=== PATIENT | female | born 1955 | race Caucasian/White ===

== ENCOUNTER 2017-04-12 15:48 | Emergency (ER) | payer OTHER ==
[~2017-04-12] VITALS: Ht 157.4 cm; Wt 73.5 kg
[2017-04-12 16:35] LABS: BASO % 0.1 % (0.0-1.0); EOS # 0.2 10*3/uL (0.0-0.4); HEMATOCRIT 36.4 % (37.0-47.0); HEMOGLOBIN 11.5 g/dl (12.0-16.0); LYMPH # 4.6 10*3/uL (1.3-4.4); LYMPH % 28.2 % (27.0-41.0); MEAN CELL VOLUME 91.9 fl (81.0-99.0); MEAN CORPUSCULAR HGB CONC 31.6 g/dl (33.0-37.0); MEAN PLATELET VOLUME 9.3 fl (9.6-12.3); MONO # 1.1 10*3/uL (0.1-1.0); MONO % 6.8 % (3.0-9.0); NEUT # 10.1 10*3/uL (2.3-7.9); NEUT % 62.9 % (47.0-73.0); PLATELET COUNT AUTOMATED 246 10*3/uL (130-400); RED BLOOD COUNT 3.96 10*6/uL (4.10-5.10); RED CELL DISTRI WIDTH 13.3 % (0-14.5); WHITE BLOOD COUNT 16.1 10*3/uL (4.8-10.8)
[2017-04-12 16:49] LABS: ALBUMIN 2.5 gm/dl (3.1-4.5); ALKALINE PHOSPHATASE 71 U/L (45-117); BUN 17 mg/dl (7-24); CHLORIDE 105 mmol/L (98-107); CREATININE 0.72 mg/dL (0.55-1.02); POTASSIUM 3.7 mmol/L (3.5-5.1); SGOT/AST 9 IU/L (3-35); SGPT/ALT 18 U/L (12-78); SODIUM 143 mmol/L (136-145); TOTAL PROTEIN 6.1 gm/dL (6.4-8.2)
[2017-04-12] MEDS ORDERED: ZOFRAN ODT4 MG SL (17:32)
== END 2017-04-12 22:19 | disposition home or self-care (01) ==
LOC: ED 15:48 → EDBD 15:50 → ED 22:19
PROVIDERS: Physician Assistant
DX: A08.4 Viral intestinal infection, unspecified (principal); R05 Cough; F17.210 Nicotine dependence, cigarettes, uncomplicated; Z88.6 Allergy status to analgesic agent; Z91.030 Bee allergy status; Z88.5 Allergy status to narcotic agent; Z88.8 Allergy status to other drugs, medicaments and biological substances; Z91.040 Latex allergy status

== ENCOUNTER 2017-04-17 13:34 | Emergency (ER) | payer OTHER ==
[~2017-04-17] VITALS: Ht 157.4 cm; Wt 73.5 kg
[~2017-04-17 13:34] MED LIST: ZOFRAN ODT4 MG SL
[2017-04-17 14:27] LABS: BASO % 0.4 % (0.0-1.0); EOS # 0.2 10*3/uL (0.0-0.4); EOS % 1.9 % (1.0-4.0); HEMATOCRIT 37.5 % (37.0-47.0); HEMOGLOBIN 11.5 g/dl (12.0-16.0); LYMPH # 3.3 10*3/uL (1.3-4.4); LYMPH % 31.4 % (27.0-41.0); MEAN CELL VOLUME 93.8 fl (81.0-99.0); MEAN CORPUSCULAR HGB 28.8 pg (27.0-31.0); MEAN CORPUSCULAR HGB CONC 30.7 g/dl (33.0-37.0); MEAN PLATELET VOLUME 9.4 fl (9.6-12.3); MONO % 9.3 % (3.0-9.0); NEUT % 56.6 % (47.0-73.0); PLATELET COUNT AUTOMATED 226 10*3/uL (130-400); RED CELL DISTRI WIDTH 13.2 % (0-14.5); WHITE BLOOD COUNT 10.5 10*3/uL (4.8-10.8)
[2017-04-17 14:39] LABS: ALBUMIN 2.7 gm/dl (3.1-4.5); ALKALINE PHOSPHATASE 60 U/L (45-117); BUN 20 mg/dl (7-24); CHLORIDE 101 mmol/L (98-107); CREATININE 0.79 mg/dL (0.55-1.02); LIPASE 183 U/L (73-393); POTASSIUM 3.8 mmol/L (3.5-5.1); SGOT/AST 7 IU/L (3-35); SGPT/ALT 14 U/L (12-78); SODIUM 138 mmol/L (136-145)
[2017-04-17 15:19] LABS: BILIRUBIN NEGATIVE (NEGATIVE); BLOOD NEGATIVE (NEGATIVE); CLARITY CLEAR (CLEAR); COLOR YELLOW (YELLOW); GLUCOSE 3+ (NEGATIVE); KETONE TRACE (NEGATIVE); LEUKO ESTERASE NEGATIVE (NEGATIVE); NITRITE NEGATIVE (NEGATIVE); PH 6.5 (5.0-9.0)
[2017-04-17 15:27] LABS: URINE AMPHETAMINES < 1000 (1000ng/ml); URINE BARBITURATES < 200 (200ng/ml); URINE BENZODIAZEPINES < 200 (200ng/ml); URINE CANNABINOIDS (THC) > 50 (50ng/ml); URINE COCAINE < 300 (300ng/ml); URINE METHADONE < 300 (300ng/ml); URINE OPIATES < 300 (300ng/ml)
[2017-04-17 15:34] LABS: URINE PHENCYCLIDINE < 25 (25ng/ml)
[2017-04-17 15:36] LABS: BACTERIA 2+; RBC 0-2 rbc/hpf (0-2)
== END 2017-04-17 17:45 | disposition short-term general hospital (02) ==
LOC: ED 13:34
PROVIDERS: Student in an Organized Health Care Education/Training Program
DX: G93.41 Metabolic encephalopathy (principal); J96.90 Respiratory failure, unspecified, unspecified whether with hypoxia or hypercapnia; F17.200 Nicotine dependence, unspecified, uncomplicated; Z90.49 Acquired absence of other specified parts of digestive tract; Z98.890 Other specified postprocedural states; Z88.6 Allergy status to analgesic agent; Z88.5 Allergy status to narcotic agent; Z91.040 Latex allergy status; Z88.8 Allergy status to other drugs, medicaments and biological substances

== ENCOUNTER 2017-04-26 01:41 | Inpatient (IN) | payer OTHER ==
[~2017-04-26] VITALS: Ht 157.4 cm; Wt 75.0 kg
[2017-04-26] VITALS (7 sets, daily range): BP systolic 113–180; BP diastolic 71–104
--- NOTE | ~2017-04-26 | PR ---
[place], [place] PROGRESS NOTE NAME: [facility]WS [facility] [id number] UNIT #: [id number] ROOM: 402 DOCTOR: LEONA POLANCO MD,ERNESTO BIRTHDATE: [birth year] DOS: 04/27/2017 SUBJECTIVE: She has been noted with reduction in symptoms of shortness of breath, coughing. There were no symptoms of chest pain. The wheezing has been decreased significantly. The patient was wishing for home discharge today. OBJECTIVE: VITAL SIGNS: Normal temperature, respiratory rate 18, heart rate 78, blood pressure 131/68. Her pulse oxygen saturation recorded on 3 liters oxygen at 98% saturation. HEENT: No new change. NECK: Supple. CARDIOVASCULAR: S1, S2 audible. LUNGS: The patient was noted with scattered expiratory wheezing, no crackles. ABDOMEN: Soft, nontender. LABORATORY DATA: BMP for this patient, normal BUN and creatinine. Glucose 194, mildly elevated. PT, PTT was normal. Culture of the sputum preliminary showing normal gissell. Gram stain was pending. IMPRESSION: 1. The patient with resolving acute exacerbation of chronic obstructive pulmonary disease, acute tracheobronchitis, questionable pneumonia for this patient in the right upper lung was noted small at this time. 2. History of chronic nicotine dependence as well. 3. Chronic hypoxic respiratory failure. PLAN OF TREATMENT: From the pulmonary standpoint, the patient could be discharged home on oral antibiotics, bronchodilators, and to resume her home medications as ordered. Other supportive therapy, plan and management and usual care. Supportive therapies, treatment plan and management. ERNESTO DELGADILLO MD CM:PNTRANS [id number] ERNESTO POLANCO MD 04/27/17 1341 interface
--- NOTE | ~2017-04-26 | EKG ---
[place], [place] ELECTROCARDIOGRAM REPORT NAME: WING MATTHEWS UNIT #: [id number] ROOM: 402 DOCTOR: LEONA POLANCO MD,ERNESTO BIRTHDATE: [birth year] DOS: 04/26/2017 TIME OF EK:05 a.m. The electrocardiogram showed evidence of sinus tachycardia with heart rate of 119 beats per minute with PVCs. Otherwise, no changes for this patient was noted such as cardiac arrhythmias or ischemia. ERNESTO DELGADILLO MD CM:EKGRPT:ELECTROCARDIOGRAM REPORT [id number] ERNESTO POLANCO MD
--- NOTE | ~2017-04-26 | CON ---
[place], [place] REPORT OF CONSULTATION NAME: WING MATTHEWS [facility] #: [id number] UNIT #: [id number] ROOM: 402 DOCTOR: ERNESTO RUSSELL MD BIRTHDATE: [birth year] DOS: 04/26/2017 CONSULTATION REQUESTED BY: Hospitalist service. REASON FOR CONSULTATION: For assessment of recurrent possible pneumonia and respiratory problem. HISTORY OF PRESENT ILLNESS: A 61-year-old somewhat poor historian has been admitted to the hospital under care of the hospitalist services this morning. The patient came into the Emergency Room as she had taken inadvertently the insulin belonging to her son because her sugar was elevated. The patient came into the Emergency Room for further problems. She does have a cough, which is noted mild to moderate without any sputum expectoration, dyspnea occurring with exertion and wheezing. She stated she has been noted wheezing for a long period of time. Denies symptoms of chest pain. Denies any symptoms of hemoptysis. She has been admitted at [facility] couple of weeks ago where she was intubated and then liberated from mechanical ventilator and currently staying at home. Further details were not known by the patient. REVIEW OF SYSTEMS: CONSTITUTIONAL: She has been noted mild fatigue. Denies symptoms of fever or chills. EYES: Denies any burning, redness, or tenderness. EARS, NOSE, THROAT: No sore throat, hoarseness, otalgia, postnasal drainage or epistaxis. CARDIOVASCULAR: Denies anginal pain, edema or pain of the lower extremities. GASTROINTESTINAL: Dysphagia, nausea, vomiting, diarrhea, abdominal pain, hematemesis, melena or hematochezia. SKIN: Denies lesions or rashes. MUSCULOSKELETAL: No acute joint pain. SKIN: No lesions, rashes or ulcers. CENTRAL NERVOUS SYSTEM: No dizziness, headache, diplopia, syncopal episodes or seizures. Remaining systems were reviewed with the patient, they were noted all negative. PAST MEDICAL HISTORY: 1. COPD/centrilobular emphysema. 2. Type 2 diabetes mellitus. 3. Fibromyalgia. 4. History of rheumatoid arthritis. PAST SURGICAL HISTORY: 1. Reported as several surgeries that include appendectomy. 2. Resection of the bowel, details again were unknown. 3. History of hernia repair. 4. Multiple other surgeries, not described by the patient fully. SOCIAL HISTORY: The patient is , has 2 children. She has been noted history of tobacco use, started at age of [age] years old, smoked maximum of 3 [place], [place] REPORT OF CONSULTATION NAME: WING MATTHEWS UNIT #: [id number] ROOM: 402 DOCTOR: LEONA POLANCO MD,ERNESTO BIRTHDATE: [birth year] packs of cigarettes per day. Currently smokes 1 pack of cigarettes per day actively until the hospitalization. Denies any history of alcohol use, illicit drug use or occupation related pulmonary exposure. FAMILY HISTORY: Note with history of lung cancer in the mother, history about the dad were described as hypertension. MEDICATIONS: From home were listed as only Zofran. DRUG ALLERGIES: Noted for many allergies that include PERCOCET, INVOKANA, CODEINE PHOSPHATE, ERYTHROMYCIN, FLURBIPROFEN, MUCINEX, DILAUDID, LAMICTAL, MEPERIDINE, METFORMIN, MORPHINE, NORFLEX, LYRICA and ZOLOFT. PHYSICAL EXAMINATION: GENERAL: A 61-year-old female who has been sitting on the bed stating that she would like to be discharged home to celebrate her birthday tomorrow. She does not have signs of acute respiratory distress. Height of 5 feet 2 inches, weight 165 pounds, BMI 30.2. VITAL SIGNS: The patient shows a temperature of 100.3 degrees Fahrenheit, normal temperature; respiratory rate 12-24; heart rate 134-88; blood pressure 142/76-144/104. The pulse oxygen saturation on 2 liters nasal cannula 98% saturation and room air was 98% saturation. HEENT: Head was atraumatic. Eyes nonicterus. Oral mucosa moist. NECK: Supple. CARDIOVASCULAR: S1, S2 audible. LUNGS: Noted without any crackles. Moderate decreased breath sounds with [id number] expiratory wheezing noted in the lungs bilaterally. ABDOMEN: Soft, nontender, bowel sounds present. CENTRAL NERVOUS SYSTEM: Cranial nerves 2-12 intact. No focal deficit. MUSCULOSKELETAL: The patient does not show any deformities. SKIN: No lesions or rashes. LABORATORY DATA: Lactic acid this morning was 1.2 that was normal. CBC this morning, normal WBC count and platelet count, hemoglobin mildly decreased at 11.1, hematocrit 36.3. The PT and PTT were noted as normal this morning. CMP this morning, glucose 29, BUN and creatinine were normal. CO2 of 35. Total protein 5.9, albumin 2.5. ProBNP minimally elevated 266 with normal troponin this morning. The troponin follow for this patient three additional tests were noted as normal this morning. The radiology data was personally reviewed. The chest x-ray, which was done 2-view this morning at 7:00 a.m. shows small area of basilar atelectasis. CT of the chest, the patient was also ordered and done in the Emergency Room. There was no evidence of pulmonary embolism. The CT scan of the chest was personally reviewed, shows small area of scarring noted in the right apex with changes of mild centrilobular emphysema. A granuloma was noted in the left upper lobe. Calcification of the mediastinal lymph node and hilar lymph noted bilaterally. Another linear scarring was noted in the right middle lobe for this patient with a small patchy infiltration was suspected in the right lower lobe. Small scarring was noted in the left lingula as well. IMPRESSION: [place], [place] REPORT OF CONSULTATION NAME: WING MATTHEWS UNIT #: [id number] ROOM: [facility] DO[facility] B[facility] [birth year] 1. The patient will be currently admitted, this patient's etiology was unclear, but appears to have exacerbation of chronic obstructive pulmonary disease. Current finding, the patient does not represent for the patient any gross major pneumonia for this patient with current assessment, low-grade fever may be related to the viral infection etiology. 2. Chronic granulomatous lung disease was also noted with calcification of the lymph node. Granuloma of the left upper lobe is a benign finding. 3. Chronic nicotine dependence as well. 4. Past respiratory failure requiring intubation and mechanical ventilation recently as well. PLAN OF TREATMENT: Tobacco cessation was addressed with the patient. She has been currently getting broad spectrum intravenous antibiotics, they may not be needed to be used. Continuation of the bronchodilators. She was started on Dulera. Nicotine replacement patch will be ordered. The patient was to use that to overcome nicotine withdrawal. The patient would be ordered Solu-Medrol for this patient to manage the current COPD. Other supportive therapy, plan of management. Usual care, all other treatment plan and management to be done for the patient based on progression of the illness. Thanks for allowing me to participate in the care of this patient. ERNESTO DELGADILLO MD CM:CONSTR:REPORT OF CONSULTATION 1313 04/27/17 0537 interface
[2017-04-26 02:18] LABS: BASO % 0.2 % (0.0-1.0); EOS # 0.5 10*3/uL (0.0-0.4); EOS % 4.9 % (1.0-4.0); HEMATOCRIT 36.3 % (37.0-47.0); HEMOGLOBIN 11.1 g/dl (12.0-16.0); LYMPH # 2.8 10*3/uL (1.3-4.4); LYMPH % 30.2 % (27.0-41.0); MEAN CELL VOLUME 93.6 fl (81.0-99.0); MEAN CORPUSCULAR HGB 28.6 pg (27.0-31.0); MEAN CORPUSCULAR HGB CONC 30.6 g/dl (33.0-37.0); MEAN PLATELET VOLUME 9.7 fl (9.6-12.3); MONO % 10.6 % (3.0-9.0); NEUT % 53.8 % (47.0-73.0); PLATELET COUNT AUTOMATED 157 10*3/uL (130-400); RED BLOOD COUNT 3.88 10*6/uL (4.10-5.10); RED CELL DISTRI WIDTH 13.5 % (0-14.5); WHITE BLOOD COUNT 9.3 10*3/uL (4.8-10.8)
[2017-04-26 02:29] LABS: ACT PARTIAL THROMBO TIME 24.1 SECONDS (20.8-31.5)
[2017-04-26 02:34] LABS: ALBUMIN 2.5 gm/dl (3.1-4.5); ALKALINE PHOSPHATASE 65 U/L (45-117); BUN 14 mg/dl (7-24); CHLORIDE 102 mmol/L (98-107); CREATININE 0.81 mg/dL (0.55-1.02); MAGNESIUM 1.5 mg/dL (1.5-2.1); POTASSIUM 3.8 mmol/L (3.5-5.1); SGOT/AST 6 IU/L (3-35); SGPT/ALT 16 U/L (12-78); SODIUM 142 mmol/L (136-145); TOTAL PROTEIN 5.9 gm/dL (6.4-8.2)
[2017-04-26 02:39] LABS: TROPONIN I < 0.015 ng/ml (<0.045)
[2017-04-26 04:35] LABS: BILIRUBIN NEGATIVE (NEGATIVE); BLOOD NEGATIVE (NEGATIVE); CLARITY SL CLOUDY (CLEAR); COLOR YELLOW (YELLOW); GLUCOSE 2+ (NEGATIVE); KETONE NEGATIVE (NEGATIVE); LEUKO ESTERASE TRACE (NEGATIVE); NITRITE NEGATIVE (NEGATIVE); PH 8.5 (5.0-9.0); SPECIFIC GRAVITY 1.015 (1.005-1.030); UROBILINOGEN 0.2 E.U./dl (0.2-1.0)
[2017-04-26 04:43] LABS: EPITHELIAL CELLS 25-30
[2017-04-26 04:44] LABS: BACTERIA TRACE
--- NOTE | 2017-04-26 05:30 | NUR ---
PER SHIFT DIRECTOR, PATIENT TO STAY IN ED UNTIL AFTER CHANGE OF SHIFT
--- NOTE | 2017-04-26 05:32 | NUR ---
PER SHIFT DIRECTOR, PATIENT TO STAY IN ED UNTIL AFTER CHANGE OF SHIT
--- NOTE | 2017-04-26 07:18 | NUR ---
REPORT RECEIVED AT 0705 FROM ADONAY PETE. PT IS SLEEPING,AWAKENS EASILY. RESPIRATIONS ARE NON-LABORED. PULSE OX ON 2L NASAL O2 IS 97% IV VANCOMYCIN IS INFUSING. PT IS ADMITTED,REPORT TO BE CALLED. KENDRICK PETE
--- NOTE | 2017-04-26 08:00 | NUR ---
CCAFDMA 61, admitted to , under the services of SAM Hernandez DO with a diagnosis of COPD. Chief complaint is SOB. Patient arrived via bed from ER. Monitor applied. Initial assessment completed. Vital signs taken and recorded. SAM HERNANDEZ DO notified of admission to the unit. Orders received. See assessment for past medical history, medications and allergies. Patient and/or family oriented to unit. [facility] visitation policy reviewed. Clothing/patient valuable form completed. SAMSON BRENNAN
[2017-04-26] MEDS ORDERED: INNOPRAN XL80 M2 PO (09:34)
[2017-04-26] MEDS ORDERED: SEROQUEL XR400 MG PO (09:35)
[2017-04-26] MEDS ORDERED: VISTARIL25 M2 PO (09:35)
[2017-04-26] MEDS ORDERED: WELLBUTRIN SR150 MG PO (09:36)
[2017-04-26] MEDS ORDERED: BUSPIRONE10 MG PO (09:36)
[2017-04-26] MEDS ORDERED: VOLTAREN50 M1 PO (09:37)
[2017-04-26] MEDS ORDERED: LIPITOR40 MG PO (09:37)
[2017-04-26] MEDS ORDERED: DEPAKOTE ER500 MG PO (09:38)
[2017-04-26] MEDS ORDERED: NEURONTIN400 MG PO (09:38)
[2017-04-26] MEDS ORDERED: SINGULAIR10 M1 PO (09:39)
[2017-04-26] MEDS ORDERED: ZESTRIL,PRINIVIL5 MG PO (09:39)
[2017-04-26] MEDS ORDERED: PROTONIX40 MG PO (09:40)
[2017-04-26] MEDS ORDERED: PULMICORT FLE180 MCG INH (09:41)
[2017-04-26] MEDS ORDERED: NOVOLOG FL100 UNIT/1 SQ (09:42)
--- NOTE | 2017-04-26 18:32 | NUR ---
PATIENT IS LAYING COMFORTABLY IN BED. PATIENT HAS SOB ON EXERTION THAT IS RECEIVING 3LPM VIA NASAL CANNULA, EVEN NEEDS IT ON WHEN USING THE RESTROOM. PATIENT IS A&OX3 AND HAS BEEN PLEASANT AND COOPERATIVE THROUGHOUT SHIFT. PATIENT DENIES ANY DISCOMFORT OR PAIN AND ONLY STATES FEELING FATIGUED.
--- NOTE | 2017-04-26 20:37 | NUR ---
MEDICATED WITH TUMS AT 1953 FOR COMPLAINTS OF BLOATING WITH EFFECTIVE RESULTS NOTED. PATIENT RESTING IN BED WATCHING TV AT THIS TIME. SAYS HER BLOATING IS SOME BETTER. WILL CONTINUE TO MONITOR. CALL LIGHT IN REACH.
[2017-04-27] VITALS: BP 144/73
[2017-04-27 05:50] LABS: BASO % 0.2 % (0.0-1.0); HEMATOCRIT 33.7 % (37.0-47.0); HEMOGLOBIN 10.8 g/dl (12.0-16.0); LYMPH # 1.3 10*3/uL (1.3-4.4); LYMPH % 13.8 % (27.0-41.0); MEAN CELL VOLUME 90.6 fl (81.0-99.0); MEAN PLATELET VOLUME 9.8 fl (9.6-12.3); MONO # 0.4 10*3/uL (0.1-1.0); MONO % 4.6 % (3.0-9.0); NEUT # 7.6 10*3/uL (2.3-7.9); NEUT % 80.5 % (47.0-73.0); PLATELET COUNT AUTOMATED 187 10*3/uL (130-400); RED BLOOD COUNT 3.72 10*6/uL (4.10-5.10); RED CELL DISTRI WIDTH 13.1 % (0-14.5); WHITE BLOOD COUNT 9.4 10*3/uL (4.8-10.8)
[2017-04-27 06:12] LABS: ALBUMIN 2.4 gm/dl (3.1-4.5); BUN 17 mg/dl (7-24); CHLORIDE 104 mmol/L (98-107); CHOLESTEROL 150 mg/dL (<200); CREATININE 0.51 mg/dL (0.55-1.02); POTASSIUM 4.1 mmol/L (3.5-5.1); SGOT/AST 11 IU/L (3-35); SGPT/ALT 14 U/L (12-78); SODIUM 141 mmol/L (136-145); TRIGLYCERIDES 86 mg/dl (<150); VLDL CHOLESTEROL 17 mg/dL (6-40)
[2017-04-27 06:19] LABS: ACT PARTIAL THROMBO TIME 22.6 SECONDS (20.8-31.5); INTERNATIONAL NORM RATIO 0.9 (2.0-3.5)
[2017-04-27 06:23] LABS: ALKALINE PHOSPHATASE 54 U/L (45-117); HDL CHOLESTEROL 63 mg/dl (40-60); LDL CHOLESTEROL 70 mg/dL (9-159); THYROID STIM HORMONE (HS) 0.252 uIU/ml (0.358-4.75); TOTAL PROTEIN 5.8 gm/dL (6.4-8.2)
[2017-04-27 06:41] LABS: VITAMIN D, 25-HYDROXY 14.9 ng/mL (30-100)
[2017-04-27 08:00] VITALS: BP 131/68
--- NOTE | 2017-04-27 09:00 | NUR ---
Emergency Crew Supervisor in to talk to patient. Patient states lives at home with family. There are few steps in the home. Physician: yue juarez, from [place] Pharmacy: none Home health services: none Patient's level of ADLs: INDEPENDENT Patient has working utilities: all working DME: home oxygen, portable tanks and nebulizer from [facility] in [facility] Follow-up physician's appointment after d/c: will be made by hospitalist nurse director upon discharge Does patient want to access PORTAL?: no Discharge plan discussed with patient, patient recently moved in with her daughter and patient's ex , she states she is independent in adls and ambulation, she has home oxygen and a nebulizer, patient states she lived in [place], [facility] and her physician is there. she would like to establish with a physican here, informed her of the resident's clinic and she would like to have an appointment made there, will inform hospitalist nurse director. patient denies any other home needs. DEANNA TRIPLETT
[2017-04-27] MEDS ORDERED: DOXYCYCLINE100 M3 PO (09:40)
[2017-04-27] MEDS ORDERED: PREDNISONE10 MG PO (09:40)
--- NOTE | 2017-04-27 10:43 | NUR ---
[facility] Discharge instructions reviewed with patient/family. Patient receptive and verbalizes understanding. Follow-up care arranged. Written instructions given to patient/family. SAMSON BRENNAN
== END 2017-04-27 10:43 | disposition home or self-care (01) | DRG 871 ==
LOC: ED 01:41 → EDHOLD 05:12 → 4E 05:12
PROVIDERS: Internal Medicine; Student in an Organized Health Care Education/Training Program; ADMIT Internal Medicine
DX: A41.9 Sepsis, unspecified organism (principal); J18.9 Pneumonia, unspecified organism; E43 Unspecified severe protein-calorie malnutrition; J96.11 Chronic respiratory failure with hypoxia; J84.10 Pulmonary fibrosis, unspecified; J44.1 Chronic obstructive pulmonary disease with (acute) exacerbation; J44.0 Chronic obstructive pulmonary disease with (acute) lower respiratory infection; E11.65 Type 2 diabetes mellitus with hyperglycemia; J20.9 Acute bronchitis, unspecified; M06.9 Rheumatoid arthritis, unspecified; D64.9 Anemia, unspecified; Z99.81 Dependence on supplemental oxygen; Z71.6 Tobacco abuse counseling; Z72.0 Tobacco use; Z79.4 Long term (current) use of insulin; Z68.30 Body mass index [BMI] 30.0-30.9, adult; Z88.5 Allergy status to narcotic agent; Z88.8 Allergy status to other drugs, medicaments and biological substances; Z91.030 Bee allergy status; Z91.040 Latex allergy status; Z79.52 Long term (current) use of systemic steroids; Z90.710 Acquired absence of both cervix and uterus; Z90.49 Acquired absence of other specified parts of digestive tract

== ENCOUNTER → 2017-05-28 | Outpatient (CLI) | payer OTHER ==
[~2017-05-28] MED LIST changes: +BUSPIRONE10 MG PO; +DEPAKOTE ER500 MG PO; +DOXYCYCLINE100 M3 PO; +INNOPRAN XL80 M2 PO; +LIPITOR40 MG PO; +NEURONTIN400 MG PO; +NOVOLOG FL100 UNIT/1 SQ; +PREDNISONE10 MG PO; +PROTONIX40 MG PO; +PULMICORT FLE180 MCG INH; +SEROQUEL XR400 MG PO; +SINGULAIR10 M1 PO; +VISTARIL25 M2 PO; +VOLTAREN50 M1 PO; +WELLBUTRIN SR150 MG PO; +ZESTRIL,PRINIVIL5 MG PO
== END | disposition home or self-care (01) ==
LOC: RESCLI 01:56
DX: Z76.89 Persons encountering health services in other specified circumstances (principal); J44.9 Chronic obstructive pulmonary disease, unspecified; R00.0 Tachycardia, unspecified; F41.9 Anxiety disorder, unspecified; F33.9 Major depressive disorder, recurrent, unspecified; F20.9 Schizophrenia, unspecified; F31.9 Bipolar disorder, unspecified; I10 Essential (primary) hypertension; E11.9 Type 2 diabetes mellitus without complications; E78.5 Hyperlipidemia, unspecified; K21.9 Gastro-esophageal reflux disease without esophagitis; Z79.4 Long term (current) use of insulin; Z88.6 Allergy status to analgesic agent

== ENCOUNTER 2017-07-23 12:19 | Inpatient (IN) | payer OTHER ==
[~2017-07-23] VITALS: Ht 157.4 cm; Wt 64.9 kg
[2017-07-23] VITALS (8 sets, daily range): BP systolic 112–141; BP diastolic 0–100
--- NOTE | ~2017-07-23 | PR ---
[place], [place] PROGRESS NOTE NAME: WING MATTHEWS UNIT #: [id number] ROOM: 408 DOCTOR: ERNESTO RUSSELL MD BIRTHDATE: [birth year] DOS: 07/25/2017 PULMONARY FOLLOWUP SUBJECTIVE: The patient has been noted much more awake and alert this morning. The use of the BiPAP has been noted intermittently. She has not been noted symptoms of chest pain or any abdominal pain. The patient was using oxygen supplementation, nasal cannula this morning. OBJECTIVE: VITAL SIGNS: Normal temperature, respiratory rate of 12, heart rate 75, blood pressure 149/48. Pulse oxygen saturation of the patient recorded as 95% for this patient and with the BiPAP at midnight was 98% saturation on 30% oxygen. HEENT: Examination shows no acute change. NECK: Supple. CARDIOVASCULAR: S1, S2 audible. LUNGS: The patient was noted without any wheezing or crackles at the present time. ABDOMEN: Soft, nontender. EXTREMITIES: The patient was noted without any edema, clubbing, cyanosis. SKIN: Visible skin lesions or rashes. MUSCULOSKELETAL: No deformity. CENTRAL NERVOUS SYSTEM: Cranial nerves 2-12 intact. LABORATORY DATA: CBC for the patient this morning was essentially noted as mild anemia, otherwise normal. CMP: BUN 40, creatinine was normal, glucose 222, AST 73. IMPRESSION: 1. The patient has been noted ongoing severe [id number] hypercapnic hypoxic respiratory failure. 2. Acute exacerbation of chronic obstructive pulmonary disease and acute steroid-induced hyperglycemia as well. 3. Mild azotemia secondary to use of the corticosteroids, prednisone as well. PLAN OF MANAGEMENT: Obtain another arterial blood gas of the patient on the ____ to establish improvement in the ventilatory status. Continuation of the current dose of Solu-Medrol for the patient 40 mg every 8 hours. Continue bronchodilators and antibiotics. Use of the BiPAP by the patient at nighttime and p.r.n. during the day. Certainly, she could be transferred from the intensive care unit to telemetry floor at the present time. [place], [place] PROGRESS NOTE NAME: WING MATTHEWS UNIT #: [id number] ROOM: 408 DOCTOR: ERNESTO RUSSELL MD BIRTHDATE: [birth year] ERNESTO DELGADILLO MD CM:PNTRANS [phone] ERNESTO POLANCO MD 07/25/171939 interface
--- NOTE | ~2017-07-23 | CON ---
[place], [place] REPORT OF CONSULTATION [id number] UN[facility] #: [id number] ROOM: [place] [address] DOCTOR: ERNESTO RUSSELL MD BIRTHDATE: [birth year] DOS: 07/24/2017 PULMONARY CONSULTATION EVALUATION AND MANAGEMENT The consultation was requested by the hospitalist services for the assessment of the current respiratory failure and exacerbation of COPD. HISTORY OF PRESENT ILLNESS: A 62-year-old female known to me from the past. The patient has been admitted in the hospital in 04/2017 and treated for acute exacerbation of COPD and acute tracheobronchitis at that time. The patient was discharged home. She was known with history of chronic hypoxic respiratory failure as well. She has been readmitted to the hospital on 07/23/2017 and she was brought to the Emergency Room complaining of having progressive general weakness and fatigue. She was brought to the hospital by the EMS. The patient reported symptoms of having increased shortness of breath and also noted a change in mental status with increased lethargy. The patient reported in the Emergency Room that she has been decreasing oxygen supplementation to 1 liter nasal cannula. The patient is unable to provide me any history, currently somewhat sedated, arousable to vocal commands, but does not have any meaningful conversation at this time. All the history is contained is document is actual review of my past consultation records and the current documentation records for this patient by the other physicians including primary care attending and the nursing notes. She has been reported with symptoms of some cough as well. REVIEW OF SYSTEMS: Could not be completed for this patient at this time because of lack of communication verbally with the patient with current mental status. The patient has been admitted in the intensive care unit and has received 3 doses of Ativan at different time because of the agitation. The patient was not wearing the BiPAP. This morning, the patient was using oxygen supplementation with the nasal cannula. PAST MEDICAL HISTORY: 1. The patient was known with history of COPD/centrilobular emphysema. 2. Chronic hypoxic respiratory failure requiring use of oxygen 3 liter nasal cannula. 3. Type 2 diabetes mellitus. 4. Fibromyalgia. 5. History of rheumatoid arthritis. PAST SURGICAL HISTORY: Reported: 1. Appendectomy. 2. Resection of the bowel, details were unknown. 3. Abdominal hernia repair. 4. The patient has reported in the past regarding the surgery, but details were unknown. SOCIAL HISTORY: The patient is , has 2 children living at home. Tobacco use was noted for the patient from the age of [age] years old, 3 packs of cigarettes per day, later on decreased to 1 pack of cigarettes per day, not sure [place], [place] REPORT OF CONSULTATION NAME: WING MATTHEWS UNIT #: [id number] ROOM: [place] [address] DOCTOR: LEONA POLANCO MD,ERNESTO BIRTHDATE: [birth year] if the patient is still smoking cigarettes actively at this time to me. There was no history of occupation related pulmonary exposure. Denies any history of alcohol use or illicit drug use. FAMILY HISTORY: Reported for history of lung cancer. MEDICATIONS: Current administered medication noted use of IV Protonix, IV Solu-Medrol 40 mg b.i.d., DuoNeb q.4h., IV Levaquin, Ativan 1 mg q.4h. p.r.n. for agitation and other p.r.n. medications administration. DRUG ALLERGY HISTORY: REPORTED WITH MANY ALLERGIES THAT INCLUDE MUCINEX, MORPHINE, CODEINE, OXYCONTIN, NORFLEX, ENTEX LA, NSAID, ERYTHROMYCIN, LAMICTAL, METFORMIN, ZOLOFT, DEMEROL, DILAUDID, LYRICA, AND INVOKANA. PHYSICAL EXAMINATION: GENERAL: This is a 62-year-old white female currently noted to be opening her eyes without any distress, drowsy, and sleepy. Height of 5 feet 2 inches, weight of 143 pounds, BMI 26. VITAL SIGNS: The patient's temperature 99.7 degree Fahrenheit to normal temperature noted since admission. In the past 24-hour respiratory rate between 32-18, heart rate of 93-80, blood pressure 168/69-112/43. Pulse oxygen saturation recorded on the BiPAP 98%, previously, 2 liters nasal cannula 98% room air was 87% saturation on admission in the Emergency Room. HEENT: Limited exam. Head was atraumatic. Eyes nonicterus. NECK: Supple. CARDIOVASCULAR: S1, S2 audible. LUNGS: Diffuse reduction in breath sounds bilaterally with expiratory wheezing without any crackles. ABDOMEN: Flat, soft, nontender. Bowel sounds present. CENTRAL NERVOUS SYSTEM: Unable to assess; however, not reported any focal neurologic deficit previous examination by the other physicians. SKIN: Noted without any lesions or rashes on visible areas. MUSCULOSKELETAL: Does not show any obvious gross deformities except of the hand related to rheumatoid arthritis. LABORATORY DATA: The PT and PTT was noted normal yesterday on admission. The CBC yesterday on admission, WBC count 16.6, hemoglobin and hematocrit normal, and platelet count normal. The differential 75% segmented neutrophils. CMP on 07/23/2017, sodium 140, potassium 4.5, chloride of 97, carbon 36. BUN 30, creatinine 2.09. Arterial blood gas for the patient, pH of 7.27, pCO2 of 69.9, pO2 92 on 3 liter nasal cannula yesterday in the Emergency Room. Arterial blood gas of the patient that was done 05:45 this morning, pH of 7.36, pCO2 of 58, pO2 of 70-75 on 2 liter nasal cannula. The CMP of this morning, BUN 31, creatinine was normal, glucose 183. CO2 of 33. Albumin of 2.2. The PT/INR noted normal this morning. X-ray of the left hip, which was done on admission was noted without any bony abnormality of the left hip including any presence of fracture. The chest x-ray 1-view was done from faxed images was noted with finding of significant COPD, hyperinflation without any acute pulmonary infiltration, chest x-ray was personally reviewed. Lactic acid noted 1.2 normal on 07/23/2017 on admission. [place], [place] REPORT OF CONSULTATION NAME: WING MATTHEWS UNIT #: [id number] ROOM: [place] [address] DOCTOR: ERNESTO RUSSELL MD BIRTHDATE: [birth year] IMPRESSION: 1. The patient is currently admitted to the hospital noted with acute on chronic severe hypercapnia hypoxic respiratory failure, change in mental status, multifactorial secondary hypercarbia and administration of the Ativan, which is a long-acting medication benzodiazepine. 2. Acute exacerbation of chronic obstructive pulmonary disease. 3. Possible noncompliance at home for the patient with use of the medications and the oxygen was also reported. 4. History of nicotine dependence. 5. Family history of lung cancer in the mother. 6. Acute kidney injury related to the most likely volume contraction. The patient is currently corrected with use of intravenous fluid. The patient with a normal creatinine. The BUN is still noted mildly elevated. 7. History of allergy to medication, which has been listed limiting the use of several antibiotics and other medication for the patient's current medical management. 8. Acute bacterial bronchitis was suspected. PLAN OF TREATMENT: Agree with the use of current corticosteroids, the BiPAP ____ closely monitor respiratory status. If the patient develop progressive deterioration of the respiratory status, she would be considered for intubation and mechanical ventilation at that time. The use of Ativan will be discontinued for the patient to prevent further respiratory failure and worsening of the mental status. Continue current antibiotic. Sputum for Gram stain culture will be obtained. The patient is able to expectorate sputum. DVT prophylaxis will be continued in form of the heparin sulfate. Bronchodilator will be given every 4 hours. Additional treatment changes need to be made based on progression of the patient's illness. Usual care. All other supportive therapy, plan of management and care. Usual medical management and other therapies. Nicotine replacement patches if confirmed that the patient does have tobacco use at home could be applied. Thank you for allowing me to participate in the care of this patient. ERNESTO DELGADILLO MD CM:CONSTR:REPORT OF CONSULTATION 1415 07/24/171956 interface
--- NOTE | ~2017-07-23 | PR ---
[place], [place] PROGRESS NOTE [id number] UN[facility] #: [id number] ROOM: 408 DOCTOR: LEONA POLANCO MD,ERNESTO BIRTHDATE: [birth year] DOS: 07/26/2017 SUBJECTIVE: She has been noted comfortable at this time, resting on the bed and like to be possibly discharged home today. Denies symptoms of chest pain. OBJECTIVE: VITAL SIGNS: Normal temperature, respiratory rate 16, heart rate 59, blood pressure 120/69 recorded this morning. Pulse oxygen saturation 2-1/2 liters nasal cannula 95% saturation. HEENT: Examination shows no acute change. NECK: Supple. CARDIOVASCULAR: S1, S2 audible. LUNGS: The patient was noted without any wheeze or crackles at present time. ABDOMEN: Soft, nontender. LABORATORY DATA: The patient's arterial blood gas yesterday, 3 liters, pH of 7.43, pCO2 of 43.7, pO2 73.4. IMPRESSION: 1. Progressive resolution improvement has been noted with acute exacerbation of chronic obstructive pulmonary disease, [id number] hypercapnic hypoxic respiratory failure. 2. History of chronic nicotine abuse as well. PLAN OF TREATMENT: The patient could be discharged home on tapering dose of prednisone, antibiotics, use of home oxygen as well. Outpatient followup would be suggested post-discharge in the next 2-3 weeks. ERNESTO DELGADILLO MD CM:PNTRANS 1230 [id number] ERNESTO POLANCO MD 07/26/17 1549 interface
--- NOTE | ~2017-07-23 | EKG ---
[place], [place] ELECTROCARDIOGRAM REPORT NAME: WING MATTHEWS UNIT #: [id number] ROOM: 408 DOCTOR: LEONA POLANCO MD,ERNESTO BIRTHDATE: [birth year] DOS: 07/23/2017 Electrocardiogram done on 07/23/2017 at 12:42 p.m. IMPRESSION: Normal sinus rhythm were noted with heart rate of 78 beats per minute. Normal electrocardiogram was noted. ERNESTO DELGADILLO MD CM:EKGRPT:ELECTROCARDIOGRAM REPORT [id number] [id number] ERNESTO POLANCO MD
[~2017-07-23 12:19] MED LIST changes: -BUSPIRONE10 MG PO; +BUSPIRONE15 MG PO
[2017-07-23 13:08] LABS: HEMATOCRIT 39.2 % (37.0-47.0); MEAN CELL VOLUME 92.2 fl (81.0-99.0); MEAN CORPUSCULAR HGB 28.2 pg (27.0-31.0); MEAN CORPUSCULAR HGB CONC 30.6 g/dl (33.0-37.0); MEAN PLATELET VOLUME 10.3 fl (9.6-12.3); PLATELET COUNT AUTOMATED 247 10*3/uL (130-400); RED BLOOD COUNT 4.25 10*6/uL (4.10-5.10); RED CELL DISTRI WIDTH 12.5 % (0-14.5); WHITE BLOOD COUNT 16.6 10*3/uL (4.8-10.8)
[2017-07-23 13:23] LABS: ALBUMIN 2.6 gm/dl (3.1-4.5); ALKALINE PHOSPHATASE 87 U/L (45-117); BUN 30 mg/dl (7-24); CHLORIDE 97 mmol/L (98-107); CREATININE 2.09 mg/dL (0.55-1.02); LIPASE 82 U/L (73-393); POTASSIUM 4.5 mmol/L (3.5-5.1); SGOT/AST 198 IU/L (3-35); SGPT/ALT 22 U/L (12-78); SODIUM 140 mmol/L (136-145); TOTAL PROTEIN 7.6 gm/dL (6.4-8.2)
[2017-07-23 13:24] LABS: ACT PARTIAL THROMBO TIME 25.1 SECONDS (20.8-31.5); INTERNATIONAL NORM RATIO 0.9 (2.0-3.5); TROPONIN I < 0.015 ng/ml (<0.045)
[2017-07-23 13:31] LABS: VALPROIC ACID (DEPAKENE) 70.1 ug/ml (50-100)
[2017-07-23 13:35] LABS: PLATELET SUFFICIENCY NORMAL (NORMAL); TOTAL CELLS COUNTED 100 #CELLS
[2017-07-23 14:10] LABS: BILIRUBIN 1+ (NEGATIVE); BLOOD 3+ (NEGATIVE); CLARITY SL CLOUDY (CLEAR); COLOR YELLOW (YELLOW); GLUCOSE 1+ (NEGATIVE); KETONE TRACE (NEGATIVE); LEUKO ESTERASE NEGATIVE (NEGATIVE); NITRITE NEGATIVE (NEGATIVE); PH 5.5 (5.0-9.0); SPECIFIC GRAVITY >= 1.030 (1.005-1.030); UROBILINOGEN 0.2 E.U./dl (0.2-1.0)
[2017-07-23 14:29] LABS: BACTERIA 1+
[2017-07-23 14:30] LABS: RBC 31-40 rbc/hpf (0-2)
[2017-07-23 14:48] LABS: ABG BASE EXCESS 3.6 mmol/L (-2.0-2.0); ABG HCO3 31.8 mmol/l (22-26); ABG O2 SATURATION 96.4 % (95-97); ARTERIAL BLOOD GAS PCO2 69.9 mmHg (35-45); ARTERIAL BLOOD GAS PH 7.279 (7.35-7.45); ARTERIAL BLOOD GAS PO2 93.7 mmHg (80-90)
[2017-07-24] VITALS: BP 140/71
[2017-07-24 04:00] VITALS: BP 168/69
[2017-07-24 05:27] LABS: BASO % 0.2 % (0.0-1.0); HEMATOCRIT 35.9 % (37.0-47.0); HEMOGLOBIN 11.1 g/dl (12.0-16.0); LYMPH # 1.2 10*3/uL (1.3-4.4); LYMPH % 9.5 % (27.0-41.0); MEAN CELL VOLUME 90.2 fl (81.0-99.0); MEAN CORPUSCULAR HGB 27.9 pg (27.0-31.0); MEAN CORPUSCULAR HGB CONC 30.9 g/dl (33.0-37.0); MONO # 0.3 10*3/uL (0.1-1.0); NEUT # 10.8 10*3/uL (2.3-7.9); NEUT % 87.7 % (47.0-73.0); PLATELET COUNT AUTOMATED 219 10*3/uL (130-400); RED BLOOD COUNT 3.98 10*6/uL (4.10-5.10); RED CELL DISTRI WIDTH 12.2 % (0-14.5); WHITE BLOOD COUNT 12.3 10*3/uL (4.8-10.8)
[2017-07-24 05:51] LABS: ALBUMIN 2.2 gm/dl (3.1-4.5); ALKALINE PHOSPHATASE 78 U/L (45-117); BUN 31 mg/dl (7-24); CHLORIDE 100 mmol/L (98-107); CHOLESTEROL 142 mg/dL (<200); CREATININE 0.93 mg/dL (0.55-1.02); PHOSPHOROUS 2.6 mg/dL (2.5-4.9); POTASSIUM 4.6 mmol/L (3.5-5.1); SGOT/AST 144 IU/L (3-35); SGPT/ALT 19 U/L (12-78); SODIUM 140 mmol/L (136-145); TOTAL PROTEIN 6.7 gm/dL (6.4-8.2); TRIGLYCERIDES 165 mg/dl (<150); VLDL CHOLESTEROL 33 mg/dL (6-40)
[2017-07-24 05:52] LABS: HDL CHOLESTEROL 34 mg/dl (40-60); LDL CHOLESTEROL 75 mg/dL (9-159)
[2017-07-24 05:57] LABS: ABG BASE EXCESS 6.1 mmol/L (-2.0-2.0); ABG HCO3 32.5 mmol/l (22-26); ABG O2 SATURATION 92.3 % (95-97); ARTERIAL BLOOD GAS PCO2 58.7 mmHg (35-45); ARTERIAL BLOOD GAS PH 7.362 (7.35-7.45); ARTERIAL BLOOD GAS PO2 75.6 mmHg (80-90)
[2017-07-24 05:58] LABS: THYROID STIM HORMONE (HS) 0.448 uIU/ml (0.358-4.75)
[2017-07-24 08:00] VITALS: BP 150/82
[2017-07-24 12:00] VITALS: BP 163/68
[2017-07-24] MEDS ORDERED: DEPAKOTE500 M1 PO (14:23)
[2017-07-24] MEDS ORDERED: SEROQUEL100 MG PO (14:33)
[2017-07-24] MEDS ORDERED: OMEPRAZOLE20 M2 PO (14:34)
[2017-07-24] MEDS ORDERED: DUONEB 3 MG/3 ML3 M1 INH (14:35)
[2017-07-24] MEDS ORDERED: PROAIR HFA8.5 GM INH (14:35)
[2017-07-24] MEDS ORDERED: XALATAN 0.005%2.5 ML OS (14:36)
[2017-07-24] MEDS ORDERED: GUAIFENESIN600 MG PO (14:39)
[2017-07-24] MEDS ORDERED: ALPHAGAN-P 0.2%5 ML OS (14:39)
[2017-07-24 16:00] VITALS: BP 140/59
[2017-07-24 20:00] VITALS: BP 149/69
[2017-07-25] VITALS: BP 135/70
[2017-07-25 04:00] VITALS: BP 145/58
[2017-07-25 05:19] LABS: BASO % 0.3 % (0.0-1.0); HEMATOCRIT 31.8 % (37.0-47.0); HEMOGLOBIN 10.3 g/dl (12.0-16.0); LYMPH # 1.5 10*3/uL (1.3-4.4); LYMPH % 18.6 % (27.0-41.0); MEAN CELL VOLUME 88.8 fl (81.0-99.0); MEAN CORPUSCULAR HGB 28.8 pg (27.0-31.0); MEAN CORPUSCULAR HGB CONC 32.4 g/dl (33.0-37.0); MONO # 0.2 10*3/uL (0.1-1.0); MONO % 2.6 % (3.0-9.0); NEUT # 6.1 10*3/uL (2.3-7.9); NEUT % 77.9 % (47.0-73.0); PLATELET COUNT AUTOMATED 223 10*3/uL (130-400); RED BLOOD COUNT 3.58 10*6/uL (4.10-5.10); RED CELL DISTRI WIDTH 12.3 % (0-14.5); WHITE BLOOD COUNT 7.8 10*3/uL (4.8-10.8)
[2017-07-25 05:37] LABS: ALBUMIN 2.1 gm/dl (3.1-4.5); ALKALINE PHOSPHATASE 65 U/L (45-117); CHLORIDE 102 mmol/L (98-107); POTASSIUM 4.6 mmol/L (3.5-5.1); SGOT/AST 73 IU/L (3-35); SGPT/ALT 16 U/L (12-78); SODIUM 141 mmol/L (136-145)
[2017-07-25 05:51] LABS: BUN 40 mg/dl (7-24); CREATININE 0.73 mg/dL (0.55-1.02)
[2017-07-25 08:00] VITALS: BP 149/48
[2017-07-25 12:00] VITALS: BP 140/52
[2017-07-25 14:56] LABS: ABG BASE EXCESS 4.5 mmol/L (-2.0-2.0); ABG O2 SATURATION 93.6 % (95-97); ARTERIAL BLOOD GAS PCO2 43.7 mmHg (35-45); ARTERIAL BLOOD GAS PH 7.435 (7.35-7.45); ARTERIAL BLOOD GAS PO2 73.4 mmHg (80-90)
[2017-07-25 16:00] VITALS: BP 122/64
[2017-07-25 20:00] VITALS: BP 135/68
[2017-07-26] VITALS: BP 144/60
[2017-07-26 07:04] LABS: BASO % 0.1 % (0.0-1.0); HEMATOCRIT 30.6 % (37.0-47.0); HEMOGLOBIN 9.8 g/dl (12.0-16.0); LYMPH # 1.5 10*3/uL (1.3-4.4); LYMPH % 17.8 % (27.0-41.0); MEAN CELL VOLUME 86.4 fl (81.0-99.0); MEAN CORPUSCULAR HGB 27.7 pg (27.0-31.0); MEAN PLATELET VOLUME 9.9 fl (9.6-12.3); MONO # 0.3 10*3/uL (0.1-1.0); MONO % 3.5 % (3.0-9.0); NEUT # 6.5 10*3/uL (2.3-7.9); NEUT % 76.7 % (47.0-73.0); PLATELET COUNT AUTOMATED 224 10*3/uL (130-400); RED BLOOD COUNT 3.54 10*6/uL (4.10-5.10); RED CELL DISTRI WIDTH 12.2 % (0-14.5); WHITE BLOOD COUNT 8.5 10*3/uL (4.8-10.8)
[2017-07-26 07:35] LABS: BUN 35 mg/dl (7-24); CHLORIDE 102 mmol/L (98-107); POTASSIUM 4.4 mmol/L (3.5-5.1); SODIUM 140 mmol/L (136-145)
[2017-07-26 07:36] LABS: CREATININE 0.68 mg/dL (0.55-1.02)
[2017-07-26 08:00] VITALS: BP 128/69
[2017-07-26] MEDS ORDERED: PREDNISONE10 MG PO (13:20)
[2017-07-26] MEDS ORDERED: LEVAQUIN750 M1 PO (13:20)
== END 2017-07-26 14:15 | disposition home or self-care (01) | DRG 871 ==
LOC: ED 12:19 → ICCU 14:52 → EDHOLD 14:52 → ICCU 15:04 → 4E 07-25 18:03
PROVIDERS: Emergency Medicine; Internal Medicine; Internal Medicine Critical Care Medicine; Student in an Organized Health Care Education/Training Program
PROC: 5A09357 Assistance with Respiratory Ventilation, Less than 24 Consecutive Hours, Continuous Positive Airway Pressure (ICD-10-PCS; 2017-07-23)
PROC: 5A09357 Assistance with Respiratory Ventilation, Less than 24 Consecutive Hours, Continuous Positive Airway Pressure (ICD-10-PCS; principal; 2017-07-24)
PROC: 5A09357 Assistance with Respiratory Ventilation, Less than 24 Consecutive Hours, Continuous Positive Airway Pressure (ICD-10-PCS; 2017-07-25)
DX: A41.9 Sepsis, unspecified organism (principal); G93.41 Metabolic encephalopathy; J96.21 Acute and chronic respiratory failure with hypoxia; E43 Unspecified severe protein-calorie malnutrition; N17.0 Acute kidney failure with tubular necrosis; Z99.81 Dependence on supplemental oxygen; E86.0 Dehydration; J96.22 Acute and chronic respiratory failure with hypercapnia; J44.1 Chronic obstructive pulmonary disease with (acute) exacerbation; R65.20 Severe sepsis without septic shock; D64.9 Anemia, unspecified; M79.7 Fibromyalgia; M06.9 Rheumatoid arthritis, unspecified; F17.210 Nicotine dependence, cigarettes, uncomplicated; E09.65 Drug or chemical induced diabetes mellitus with hyperglycemia; T38.0X5A Adverse effect of glucocorticoids and synthetic analogues, initial encounter; R79.89 Other specified abnormal findings of blood chemistry; M54.5 Low back pain; G89.29 Other chronic pain; K21.9 Gastro-esophageal reflux disease without esophagitis; E55.9 Vitamin D deficiency, unspecified; Z90.89 Acquired absence of other organs; Z90.710 Acquired absence of both cervix and uterus; Z82.49 Family history of ischemic heart disease and other diseases of the circulatory system; Z80.1 Family history of malignant neoplasm of trachea, bronchus and lung; Z88.8 Allergy status to other drugs, medicaments and biological substances; Z88.4 Allergy status to anesthetic agent; Z88.1 Allergy status to other antibiotic agents; Z91.030 Bee allergy status; Z91.040 Latex allergy status; Z79.4 Long term (current) use of insulin; Z79.899 Other long term (current) drug therapy; Y92.89 Other specified places as the place of occurrence of the external cause; Z68.26 Body mass index [BMI] 26.0-26.9, adult

== ENCOUNTER 2017-08-04 20:08 | Emergency (ER) | payer OTHER ==
[~2017-08-04] VITALS: Ht 165.1 cm; Wt 72.6 kg
[~2017-08-04 20:08] MED LIST changes: +ALPHAGAN-P 0.2%5 ML OS; +DEPAKOTE500 M1 PO; +DUONEB 3 MG/3 ML3 M1 INH; +GUAIFENESIN600 MG PO; +LEVAQUIN750 M1 PO; +OMEPRAZOLE20 M2 PO; +PROAIR HFA8.5 GM INH; +SEROQUEL100 MG PO; +XALATAN 0.005%2.5 ML OS
== END 2017-08-04 20:55 | disposition left against medical advice (07) ==
LOC: ED 20:08
DX: R60.0 Localized edema (principal); J44.9 Chronic obstructive pulmonary disease, unspecified; E11.9 Type 2 diabetes mellitus without complications; K21.9 Gastro-esophageal reflux disease without esophagitis; F17.200 Nicotine dependence, unspecified, uncomplicated; Z55.0 Illiteracy and low-level literacy; Z79.899 Other long term (current) drug therapy; Z91.030 Bee allergy status; Z88.6 Allergy status to analgesic agent; Z91.040 Latex allergy status; Z88.8 Allergy status to other drugs, medicaments and biological substances

== ENCOUNTER 2017-08-23 03:26 | Inpatient (IN) | payer OTHER ==
[~2017-08-23] VITALS: Ht 157.5 cm; Wt 69.5 kg
[2017-08-23] VITALS (7 sets, daily range): BP systolic 117–162; BP diastolic 55–81
--- NOTE | ~2017-08-23 | CON ---
[place], [place] REPORT OF CONSULTATION NAME: WING MATTHEWS [facility] #: [id number] UNIT #: [id number] ROOM: 515 DOCTOR: ERNESTO RUSSELL MD BIRTHDATE: [birth year] DOS: 08/23/2017 PULMONARY CONSULTATION, EVALUATION AND MANAGEMENT REASON FOR CONSULTATION: Assess the patient for recurrence of acute exacerbation of COPD. HISTORY OF PRESENT ILLNESS: This is a 62-year-old female patient known to me with past history of COPD and other medical illnesses. She has been treated in this hospital in early portion of 07/2017 and discharged home on 07/26. She presented to the Emergency Room and admitted to the hospital on 08/23/2017 this morning. She presented with having progressive increased symptoms of shortness of breath with changes in mental status currently progressively worsening. She has been admitted to the hospital for the exacerbation of COPD and change in mental status. She was also noted with symptoms of chest congestion, coughing and not expectorate any sputum. The coughing has been noted moderate. She denies any symptoms of hemoptysis or any chest pain. She reported symptoms of wheezing as well with some chest tightness. The patient was started on 100% nonrebreather mask in the Emergency Room, which has been taken by the patient intermittently. There were no arterial blood gases done for this patient. She has been ordered the BiPAP for further medical management. The patient does not wish to use the BiPAP. She has not used the BiPAP since hospitalization in the Intensive Care Unit. REVIEW OF SYSTEMS: CONSTITUTIONAL SYMPTOMS: Fatigue and tiredness reported. Denies symptoms of fever or chills. EYES: Denies any burning, redness, or tenderness. EARS, NOSE, THROAT SYMPTOMS: Denies sore throat, hoarseness, otalgia, postnasal drainage or epistaxis. CARDIOVASCULAR: Denies anginal pain, edema or pain of the lower extremity. GASTROINTESTINAL: Denies dysphagia, nausea, vomiting, diarrhea, abdominal pain, hematemesis, melena, or hematochezia. SKIN: Denies lesions or rashes. MUSCULOSKELETAL: No acute joint pain, redness or tenderness reported by the patient. CENTRAL NERVOUS SYSTEM: No dizziness, headache, diplopia, syncopal episodes or seizures. Remaining systems were reviewed. They were noted all negative. PAST MEDICAL HISTORY: 1. Severe centrilobular emphysema/COPD and acute chronic hypoxic respiratory failure, 3 LPM of oxygen use. 2. Type 2 diabetes mellitus. 3. Fibromyalgia. 4. History of rheumatoid arthritis. 5. Chronic nicotine dependence. PAST SURGICAL HISTORY: [place], [place] REPORT OF CONSULTATION NAME: WING MATTHEWS UNIT #: [id number] ROOM: [facility] DOCTOR: LEONA POLANCO MD,RENESTO BIRTHDATE: [birth year] 1. Appendectomy. 2. Resection of the bowel, details unknown. 3. Abdominal hernia repair. SOCIAL HISTORY: The patient is , has 2 children, lives at home, noted up to 3 packs of cigarettes per day, started at the age of [age] years old, currently smoking a pack of cigarettes per day, still actively until hospitalization. Denies any history of alcohol use or any illicit drug use. FAMILY HISTORY: Known for history of lung cancer. MEDICATIONS: Current administered medications noted as use of Protonix, magnesium oxide, and temazepam. DRUG ALLERGIES: NOTED MANY ALLERGIES THAT INCLUDE MUCINEX, MORPHINE, CODEINE, OXYCODONE, PERCOCET, NORFLEX, NSAIDS, ERYTHROMYCIN, LAMICTAL, METFORMIN, SERTRALINE, MEPERIDINE, DILAUDID, LYRICA AND INVOKANA. PHYSICAL EXAMINATION: GENERAL: A 62-year-old white female, currently sitting on the bed without any acute distress. Height of 5 feet 2 inches, weight 153 pounds, BMI 28. VITAL SIGNS: Normal temperature, respiratory rate 24-18, heart rate of 105-82, blood pressure 136/76-124/55. Pulse oxygen saturation on 2 liters nasal cannula was 89% saturation. Earlier BiPAP used by the patient for a little bit of time was noted with saturation of 98%. HEENT: Shows head was atraumatic. Eye nonicterus. NECK: Supple. CARDIOVASCULAR: S1, S2 audible. LUNGS: Generalized diminished breath sounds with decreased air entry of the lungs. ABDOMEN: Soft, flat, nontender. Bowel sounds present. EXTREMITIES: Without any edema, clubbing or cyanosis. MUSCULOSKELETAL SYMPTOMS: Without any acute deformities. VISIBLE SKIN: No lesions or rashes. MUSCULOSKELETAL SYMPTOMS: No deformities. LABORATORY DATA: Influenza A and B nasal washing antigen negative this morning. CBC this morning - WBC count 12.1, remaining CBC was grossly normal. The CMP on 08/23 - glucose 162, BUN normal, creatinine normal, CO2 37, magnesium 1.4. The troponin was normal. Chest x-ray just one view that was done for the patient on 08/23/2017 shows hyperinflation of lung changes and COPD without any acute pulmonary infiltration. IMPRESSION: 1. The patient currently noted with findings of acute exacerbation of chronic obstructive pulmonary disease, possibly to hypercarbia resulting in confusion. The patient refused to have arterial blood gases done and not using the BiPAP either. 2. Chronic nicotine dependence as well. 3. Past recurrent hospitalization for chronic obstructive pulmonary [place], [place] REPORT OF CONSULTATION NAME: WING MATTHEWS UNIT #: [id number] ROOM: [facility] DOCTOR: LEONA POLANCO MD,ERNESTO BIRTHDATE: [birth year] exacerbation. PLAN OF MANAGEMENT: If the patient agrees to obtain the arterial blood gases, she was refusing to use the BiPAP titers, in the meantime oxygen supplementation, maintain saturation 90% or greater. She was initially started on steroids, later on discontinued. Steroids will be resumed if the patient developed worsening wheezing at this time. Continue short-acting bronchodilators every 4 hours. Monitor respiratory status closely. Additional treatment changes to be made based on the progression of the illness. ERNESTO DELGADILLO MD CM:CONSTR:REPORT OF CONSULTATION 1216 08/24/17 0006 interface
--- NOTE | ~2017-08-23 | EKG ---
[place], [place] ELECTROCARDIOGRAM REPORT NAME: WING MATTHEWS UNIT #: [id number] ROOM: [facility] DOCTOR: LEONA POLANCO MD,ERNESTO BIRTHDATE: [birth year] DOS: 08/23/2017 The patient at 3:53 a.m. Sinus tachycardia noted, heart rate of 113 beats per minute. Left atrial enlargement. The patient was also noted. There were no changes of acute ischemia. ERNESTO DELGADILLO MD CM:EKGRPT:ELECTROCARDIOGRAM REPORT [id number] ERNESTO POLANCO MD
--- NOTE | ~2017-08-23 | PR ---
[place], [place] PROGRESS NOTE NAME: WING MATTHEWS UNIT #: [id number] ROOM: 515 DOCTOR: ERNESTO RUSSELL MD BIRTHDATE: [birth year] DOS: 08/24/2017 SUBJECTIVE: She has been noted sitting on the bed complaining of significant headache. Denies symptoms of chest pain. Shortness of breath and cough the patient noted gradual reduction. There were no symptoms of chest pain reported by the patient. The patient denies any acute abdominal pain at this time. OBJECTIVE: VITAL SIGNS: Shows normal temperature, respiratory rate 20, heart rate 107, blood pressure 130/61, pulse ox saturation is noted on 3 liters nasal cannula 96% saturation. HEENT: Showed no acute change. NECK: Supple. CARDIOVASCULAR: S1, S2 audible. LUNGS: Without any wheeze or crackles at present time. VISIBLE SKIN: No lesions or rashes. MUSCULOSKELETAL: Without any acute deformities. CENTRAL NERVOUS SYSTEM: Intact. LABORATORY DATA: CBC this morning, hemoglobin 10.2, hematocrit 32.8, WBC count normal, platelet count was normal. Urine culture, contamination was reported. CMP, glucose 138, BUN normal, creatinine normal, CO2 of 39. IMPRESSION: The patient was noted with acute on chronic hypercapnic hypoxic respiratory failure, confusional status related to acute exacerbation of chronic obstructive pulmonary disease. History of chronic nicotine dependence, headache most likely related to hypercarbia, metabolic alkalosis secondary to hypercarbia as well. PLAN OF TREATMENT: The patient refused to have the arterial blood gases done and also does not wish to use the BiPAP as well. Symptomatic management of headache. Monitoring the metabolic alkalosis. Continuation of the bronchodilator as well. Supportive care therapy, plan of management as well. Additional treatment changes to be done based on progression of the illness. Usual care. Other therapies. [place], [place] PROGRESS NOTE NAME: WING MATTHEWS UNIT #: [id number] ROOM: [facility] DOCTOR: ERNESTO RUSSELL MD BIRTHDATE: [birth year] ERNESTO DELGADILLO MD CM:PNTRANS [id number] ERNESTO POLANCO MD 08/24/17 [id number] interface
[2017-08-23 04:10] LABS: HEMATOCRIT 37.7 % (37.0-47.0); HEMOGLOBIN 11.5 g/dl (12.0-16.0); MEAN CELL VOLUME 91.7 fl (81.0-99.0); MEAN CORPUSCULAR HGB CONC 30.5 g/dl (33.0-37.0); MEAN PLATELET VOLUME 9.4 fl (9.6-12.3); PLATELET COUNT AUTOMATED 223 10*3/uL (130-400); RED BLOOD COUNT 4.11 10*6/uL (4.10-5.10); RED CELL DISTRI WIDTH 13.3 % (0-14.5); WHITE BLOOD COUNT 12.1 10*3/uL (4.8-10.8)
[2017-08-23 04:15] LABS: BILIRUBIN NEGATIVE (NEGATIVE); BLOOD 1+ (NEGATIVE); CLARITY CLEAR (CLEAR); COLOR YELLOW (YELLOW); GLUCOSE NEGATIVE (NEGATIVE); KETONE 1+ (NEGATIVE); LEUKO ESTERASE NEGATIVE (NEGATIVE); NITRITE NEGATIVE (NEGATIVE); UROBILINOGEN 0.2 E.U./dl (0.2-1.0)
[2017-08-23 04:27] LABS: WBC 0-2 wbc/hpf (0-5)
[2017-08-23 04:29] LABS: ALBUMIN 3.1 gm/dl (3.1-4.5); ALKALINE PHOSPHATASE 81 U/L (45-117); BUN 11 mg/dl (7-24); CHLORIDE 96 mmol/L (98-107); CREATININE 0.58 mg/dL (0.55-1.02); POTASSIUM 4.3 mmol/L (3.5-5.1); SGOT/AST 7 IU/L (3-35); SGPT/ALT 10 U/L (12-78); SODIUM 139 mmol/L (136-145); TOTAL PROTEIN 7.3 gm/dL (6.4-8.2)
[2017-08-23 04:30] LABS: ATYPICAL LYMPHS 3 % (0-0); PLATELET SUFFICIENCY NORMAL (NORMAL); TOTAL CELLS COUNTED 100 #CELLS
[2017-08-23 04:31] LABS: TROPONIN I < 0.015 ng/ml (<0.045)
[2017-08-23] MEDS ORDERED: CEPHULAC10 GM/151 PO (10:13)
[2017-08-23] MEDS ORDERED: GLUCOPHAGE500 M1 PO (10:14)
[2017-08-23] MEDS ORDERED: CLARITIN10 MG PO (10:14)
[2017-08-23] MEDS ORDERED: BREO ELLIPTA 21 EACH INH (10:17)
[2017-08-24] VITALS: BP 146/64
[2017-08-24 07:57] LABS: BASO % 0.2 % (0.0-1.0); EOS % 0.1 % (1.0-4.0); HEMATOCRIT 32.8 % (37.0-47.0); HEMOGLOBIN 10.2 g/dl (12.0-16.0); LYMPH % 34.3 % (27.0-41.0); MEAN CELL VOLUME 89.1 fl (81.0-99.0); MEAN CORPUSCULAR HGB 27.7 pg (27.0-31.0); MEAN CORPUSCULAR HGB CONC 31.1 g/dl (33.0-37.0); MEAN PLATELET VOLUME 9.8 fl (9.6-12.3); MONO # 1.4 10*3/uL (0.1-1.0); MONO % 16.5 % (3.0-9.0); NEUT # 4.2 10*3/uL (2.3-7.9); NEUT % 48.4 % (47.0-73.0); PLATELET COUNT AUTOMATED 235 10*3/uL (130-400); RED BLOOD COUNT 3.68 10*6/uL (4.10-5.10); RED CELL DISTRI WIDTH 13.5 % (0-14.5); WHITE BLOOD COUNT 8.6 10*3/uL (4.8-10.8)
[2017-08-24 08:00] VITALS: BP 138/61
[2017-08-24 08:35] LABS: ALBUMIN 2.6 gm/dl (3.1-4.5); BUN 18 mg/dl (7-24); CHLORIDE 97 mmol/L (98-107); CREATININE 0.66 mg/dL (0.55-1.02); PHOSPHOROUS 2.9 mg/dL (2.5-4.9); POTASSIUM 3.5 mmol/L (3.5-5.1); SGPT/ALT 9 U/L (12-78); SODIUM 140 mmol/L (136-145)
[2017-08-24 08:38] LABS: ALKALINE PHOSPHATASE 65 U/L (45-117); SGOT/AST 10 IU/L (3-35); TOTAL PROTEIN 6.3 gm/dL (6.4-8.2)
[2017-08-24] MEDS ORDERED: MIRALAX POWDER17 G1 PO (13:52)
== END 2017-08-24 17:40 | disposition home or self-care (01) | DRG 190 ==
LOC: ED 03:26 → 5E 04:14 → EDHOLD 04:14 → 5E 04:21 → ICCU 04:48 → 5E 13:13
PROVIDERS: Emergency Medicine Emergency Medical Services; Hospitalist
DX: J44.1 Chronic obstructive pulmonary disease with (acute) exacerbation (principal); J96.21 Acute and chronic respiratory failure with hypoxia; G93.41 Metabolic encephalopathy; E87.3 Alkalosis; E44.0 Moderate protein-calorie malnutrition; R65.10 Systemic inflammatory response syndrome (SIRS) of non-infectious origin without acute organ dysfunction; E83.42 Hypomagnesemia; E11.65 Type 2 diabetes mellitus with hyperglycemia; J96.22 Acute and chronic respiratory failure with hypercapnia; E87.8 Other disorders of electrolyte and fluid balance, not elsewhere classified; Z99.81 Dependence on supplemental oxygen; M79.7 Fibromyalgia; M06.9 Rheumatoid arthritis, unspecified; K21.9 Gastro-esophageal reflux disease without esophagitis; G89.29 Other chronic pain; K59.00 Constipation, unspecified; D64.9 Anemia, unspecified; M54.5 Low back pain; Z72.0 Tobacco use; Z90.710 Acquired absence of both cervix and uterus; Z90.49 Acquired absence of other specified parts of digestive tract; Z82.49 Family history of ischemic heart disease and other diseases of the circulatory system; Z80.1 Family history of malignant neoplasm of trachea, bronchus and lung; Z88.5 Allergy status to narcotic agent; Z88.8 Allergy status to other drugs, medicaments and biological substances; Z88.6 Allergy status to analgesic agent; Z88.1 Allergy status to other antibiotic agents; Z91.030 Bee allergy status; Z91.040 Latex allergy status; Z79.899 Other long term (current) drug therapy; Z68.28 Body mass index [BMI] 28.0-28.9, adult